=== PATIENT | female | born 1945 | race Caucasian/White ===

== ENCOUNTER 2018-09-19 20:51 | Inpatient (IN) ==
--- NOTE | 2018-09-19 21:47 | ED ---
HPI General Chief complaint: Weakness Stated complaint: weakness, walking to the side Time Seen by Provider: 09/19/18 21:30 Source: patient and family (Daughter) Mode of arrival: ambulatory Limitations: no limitations History of Present Illness HPI narrative: 72-year-old female came to the emergency room brought by her daughter for being lethargic and poorly responsive this evening. She checked her oxygen saturation and it was 60. The daughter says she is much more awake now. The patient tells me that yesterday she noticed that she was constantly leaning over to the right side. This morning when she woke up she was feeling extremely tired and both her legs were hurting mostly on the anterior aspect of her thighs. She has been sleepy the whole day. She has history of diabetes but she is not on any medications. Patient did not check her blood sugar since her machine is broken. Currently she is awake and answering all the questions. She says she just feels very tired. Patient is on morphine twice a day for chronic pain and Xanax as needed. Patient last took these medications last night. She says she has been on these medications for more than 30 years and has never had problems. She did not drink any alcohol. Vital signs were relatively stable upon arrival. The daughter cannot tell me the exact time of onset. She saw the patient last time lethargic but talking in the morning. Onset (ago): hour(s) Radiation: non-radiation and extremity (Bilateral lower extremities) Severity: moderate Related Data Home Medications Medication Instructions Recorded Confirmed conjugated estrogens [Premarin] 1.25 mg PO DAILY 09/19/18 09/19/18 enalapril maleate 10 mg PO DAILY 09/19/18 09/19/18 Previous Rx's Medication Instructions Recorded alprazolam [Xanax] 0.5 mg PO TID PRN #0 tab 09/21/18 apixaban [Eliquis] 5 mg PO BID #60 tab 09/21/18 atorvastatin 20 mg PO HS #90 tab 09/21/18 Allergies Allergy/AdvReac Type Severity Reaction Status Date / Time codeine Allergy Severe FACE Unverified 07/08/17 15:51 THROAT,TONGUE SWELL cyclobenzaprine Allergy Severe Unverified 07/08/17 15:51 diclofenac Allergy Severe Unverified 07/08/17 15:51 doxycycline Allergy Severe Unverified 07/08/17 15:51 egg Allergy Severe Unverified 07/08/17 15:51 etodolac Allergy Severe Unverified 07/08/17 15:51 flurbiprofen Allergy Severe Unverified 07/08/17 15:51 glipizide Allergy Severe Unverified 07/08/17 15:51 glyburide Allergy Severe Unverified 07/08/17 15:51 hydrocodone Allergy Severe Unverified 07/08/17 15:51 ibuprofen Allergy Severe Unverified 07/08/17 15:51 indomethacin Allergy Severe Unverified 07/08/17 15:51 Iodinated Contrast- Oral and Allergy Severe Unverified 07/08/17 15:51 IV Dye iodine Allergy Severe Unverified 07/08/17 15:51 ketoprofen Allergy Severe Unverified 07/08/17 15:51 ketorolac Allergy Severe Unverified 07/08/17 15:51 lactose Allergy Severe Unverified 07/08/17 15:51 lidocaine Allergy Severe Unverified 07/08/17 15:51 methocarbamol Allergy Severe Unverified 07/08/17 15:51 metoprolol Allergy Severe Unverified 07/08/17 15:51 minocycline Allergy Severe Unverified 07/08/17 15:51 naproxen Allergy Severe Unverified 07/08/17 15:51 oxaprozin Allergy Severe Unverified 07/08/17 15:51 penicillin G Allergy Severe Unverified 07/08/17 15:51 potassium iodide Allergy Severe Unverified 07/08/17 15:51 povidone-iodine Allergy Severe Unverified 07/08/17 15:51 procaine Allergy Severe Unverified 07/08/17 15:51 propoxyphene Allergy Severe Unverified 07/08/17 15:51 rosiglitazone Allergy Severe Unverified 07/08/17 15:51 sodium iodide Allergy Severe Unverified 07/08/17 15:51 sodium iodide Allergy Severe Unverified 07/08/17 15:51 Sulfa (Sulfonamide Allergy Severe Unverified 07/08/17 15:51 Antibiotics) tetanus toxoid, adsorbed Allergy Severe Unverified 07/08/17 15:51 tigecycline Allergy Severe Unverified 07/08/17 15:51 "-STEPHANIE" Allergy Severe CARDIAC Uncoded 08/21/16 20:38 ARREST Review of Systems ROS: all other systems reviewed are negative Constitutional Reports lethargy Musculoskeletal Reports myalgias [facility] Medical History Medical History Diabetes (Acute) Surgical History Surgical History H/O section (Acute) Social History Social History Substance History: No History of Abuse Second Hand Smoke Exposure: No Smoking Status: Former smoker Tobacco Type: Cigarettes How Often Do You Have a Drink Containing Alcohol: Never Recent Travel in [facility] within the Last 8 Weeks: No Recent Out of Country Travel within the Last 8 Weeks: No Exam Narrative Exam Narrative: GENERAL: Awake, disheveled, moderate distress, emaciated SKIN: Focused skin assessment warm/dry. Disheveled HEAD: Atraumatic. Normocephalic. EYES: Pupils equal and round. No scleral icterus. No injection or drainage. ENT: No nasal bleeding or discharge. Mucous membranes pink and moist. NECK: Trachea midline. No JVD. CARDIOVASCULAR: Regular rate and rhythm. No murmur appreciated. RESPIRATORY: No accessory muscle use. Clear to auscultation. Breath sounds equal bilaterally. GASTROINTESTINAL: Abdomen soft, non-tender, nondistended. Hepatic and splenic margins not palpable. MUSCULOSKELETAL: No obvious deformities. No clubbing. No cyanosis. No edema. NEUROLOGICAL: Awake and alert. No obvious cranial nerve deficits. Left lower extremity weakness. Normal speech. Oriented x3 PSYCHIATRIC: Appropriate mood and affect; insight and judgment normal. Course Initial Documented Vital Signs Temperature 98.2 F 09/19/18 20:55 Pulse Rate 68 09/19/18 20:55 Respiratory Rate 20 09/19/18 20:55 Blood Pressure 177/99 H 09/19/18 20:55 Pulse Oximetry 98 09/19/18 20:55 Last Documented Vital Signs Temperature 97.6 F 09/21/18 12:00 Pulse Rate 55 L 09/21/18 12:00 Respiratory Rate 18 09/21/18 12:00 Blood Pressure 146/69 H 09/21/18 12:00 Pulse Oximetry 95 09/21/18 12:00 Medical Decision Making MDM Narrative Medical decision making narrative: 9:55 PM awaiting for the blood test and the CAT scan to be done and resulted. Bedside blood glucose level was 140. 11 PM blood test results are back and CPK is elevated. TSH is significantly low. UA suggestive of a UTI. Based on this I have ordered her a second liter of IV fluid bolus and p.o. Macrobid. CT of the head most notably shows a subacute infarct. Patient has been complaining of headache and I have ordered Tylenol. Patient will require admission. Awaiting for the hospitalist callback. Medical Screen Exam Complete: Yes Emergency Medical Condition: Yes Lab Data Result diagrams: 09/19/18 21:55 09/19/18 21:55 Lab Results 09/19/18 09/19/18 09/19/18 Range/Units 21:55 21:55 21:55 WBC 11.5 H (4.0-11.0) th/mm3 RBC 4.77 (4.00-5.30) mil/mm3 Hgb 12.8 (11.6-15.3) gm/dL Hct 40.1 (35.0-46.0) % MCV 84.1 (80.0-100.0) fL MCH 26.8 L (27.0-34.0) pg MCHC 31.9 L (32.0-36.0) % RDW 16.3 (11.6-17.2) % Plt Count 405 (150-450) th/mm3 MPV 8.2 (7.0-11.0) fL Neut % (Auto) 79.2 H (16.0-70.0) % Lymph % (Auto) 11.9 (9.0-44.0) % Eagle % (Auto) 5.0 (0.0-8.0) % Eos % (Auto) 3.2 (0.0-4.0) % Baso % (Auto) 0.7 (0.0-2.0) % Neut # (Auto) 9.1 H (1.8-7.7) th/mm3 Lymph # (Auto) 1.4 (1.0-4.8) th/mm3 Eagle # (Auto) 0.6 (0.0-0.9) th/mm3 Eos # (Auto) 0.4 (0.0-0.4) th/mm3 Baso # (Auto) 0.1 (0.0-0.2) th/mm3 WBC Differential . Differential Comment Auto diff final Sodium 138 (136-145) meq/L Potassium 3.9 (3.5-5.1) meq/L Chloride 103 (98-107) meq/L Carbon Dioxide 27.2 (21.0-32.0) meq/L Anion Gap 8 (5-15) meq/L BUN 20 H (7-18) mg/dL Creatinine 0.91 (0.50-1.00) mg/dL Estimated GFR 61 L (>89) mL/min POC Glucose (68-110) mg/dl Random Glucose 178 H (74-106) mg/dL Hemoglobin A1c (4.3-6.0) % Calcium 8.6 (8.5-10.1) mg/dL Magnesium 1.8 (1.5-2.5) mg/dL Total Bilirubin 0.4 (0.2-1.0) mg/dL AST 58 H (15-37) U/L ALT 36 (10-53) U/L Alkaline Phosphatase 85 (45-117) U/L Ammonia 14 (11-32) mcmol/L Total Creatine Kinase (26-192) U/L CK-MB (CK-2) (0.5-3.6) ng/mL CK-MB (CK-2) % (0.0-4.0) % Troponin I Less than 0.02 L (0.02-0.05) ng/mL Total Protein 7.4 (6.4-8.2) g/dL Albumin 3.3 L (3.4-5.0) g/dL Triglycerides (42-150) mg/dL Cholesterol (120-200) mg/dL LDL Cholesterol, Calc (0-99) mg/dL HDL Cholesterol (40.0-60.0) mg/dL Cholesterol/HDL Ratio Ratio Vitamin B12 (193-986) pg/mL TSH 0.279 L (0.358-3.740) uIU/mL Urine Color (Yellw/Straw) Urine Clarity (Clear) Urine pH (5.0-8.5) Ur Specific [place] (1.002-1.035) Urine Protein (Neg-Trace) mg/dL Urine Glucose (UA) (Negative) mg/dL Urine Ketones (Negative) mg/dL Urine Occult Blood (Negative) Urine Nitrate (Negative) Urine Bilirubin (Negative) Urine Urobilinogen (Less than 2) mg/dL Ur Leukocyte Esterase (Negative) Urine RBC (0-3) /hpf Urine WBC (0-5) /hpf Ur Squamous Epith Cells (0-5) /hpf Urine Bacteria (None) /hpf Micro UA Comment Ur Microscopic Review Urine Culture Comments Urine Opiates Screen (Neg) Ur Barbiturates Screen (Neg) Ur Amphetamines Screen (Neg) U Benzodiazepines Scrn (Neg) Urine Cocaine Screen (Neg) U Cannabinoids Screen (Neg) Serum Alcohol Less than 3 (0-5) mg/dL 09/19/18 09/19/18 09/19/18 Range/Units 21:55 22:37 22:37 WBC (4.0-11.0) th/mm3 RBC (4.00-5.30) mil/mm3 Hgb (11.6-15.3) gm/dL Hct (35.0-46.0) % MCV (80.0-100.0) fL MCH (27.0-34.0) pg MCHC (32.0-36.0) % RDW (11.6-17.2) % Plt Count (150-450) th/mm3 MPV (7.0-11.0) fL Neut % (Auto) (16.0-70.0) % Lymph % (Auto) (9.0-44.0) % Eagle % (Auto) (0.0-8.0) % Eos % (Auto) (0.0-4.0) % Baso % (Auto) (0.0-2.0) % Neut # (Auto) (1.8-7.7) th/mm3 Lymph # (Auto) (1.0-4.8) th/mm3 Eagle # (Auto) (0.0-0.9) th/mm3 Eos # (Auto) (0.0-0.4) th/mm3 Baso # (Auto) (0.0-0.2) th/mm3 WBC Differential Differential Comment Sodium (136-145) meq/L Potassium (3.5-5.1) meq/L Chloride (98-107) meq/L Carbon Dioxide (21.0-32.0) meq/L Anion Gap (5-15) meq/L BUN (7-18) mg/dL Creatinine (0.50-1.00) mg/dL Estimated GFR (>89) mL/min POC Glucose (68-110) mg/dl Random Glucose (74-106) mg/dL Hemoglobin A1c (4.3-6.0) % Calcium (8.5-10.1) mg/dL Magnesium (1.5-2.5) mg/dL Total Bilirubin (0.2-1.0) mg/dL AST (15-37) U/L ALT (10-53) U/L Alkaline Phosphatase (45-117) U/L Ammonia (11-32) mcmol/L Total Creatine Kinase 1241 H (26-192) U/L CK-MB (CK-2) 30.1 H (0.5-3.6) ng/mL CK-MB (CK-2) % 2.4 (0.0-4.0) % Troponin I (0.02-0.05) ng/mL Total Protein (6.4-8.2) g/dL Albumin (3.4-5.0) g/dL Triglycerides (42-150) mg/dL Cholesterol (120-200) mg/dL LDL Cholesterol, Calc (0-99) mg/dL HDL Cholesterol (40.0-60.0) mg/dL Cholesterol/HDL Ratio Ratio Vitamin B12 (193-986) pg/mL TSH (0.358-3.740) uIU/mL Urine Color Yellow (Yellw/Straw) Urine Clarity Hazy H (Clear) Urine pH 6.0 (5.0-8.5) Ur Specific [place] 1.003 (1.002-1.035) Urine Protein Negative (Neg-Trace) mg/dL Urine Glucose (UA) Negative (Negative) mg/dL Urine Ketones Negative (Negative) mg/dL Urine Occult Blood Negative (Negative) Urine Nitrate Negative (Negative) Urine Bilirubin Negative (Negative) Urine Urobilinogen Less than 2 (Less than 2) mg/dL Ur Leukocyte Esterase Small H (Negative) Urine RBC 1 (0-3) /hpf Urine WBC 2 (0-5) /hpf Ur Squamous Epith Cells 7 (0-5) /hpf Urine Bacteria Many H (None) /hpf Micro UA Comment Culture indicated Ur Microscopic Review Not Reportable Urine Culture Comments Culture indicated Urine Opiates Screen Pos H (Neg) Ur Barbiturates Screen Neg (Neg) Ur Amphetamines Screen Neg (Neg) U Benzodiazepines Scrn Pos H (Neg) Urine Cocaine Screen Neg (Neg) U Cannabinoids Screen Neg (Neg) Serum Alcohol (0-5) mg/dL 09/20/18 09/20/18 09/20/18 Range/Units 06:53 06:53 06:53 WBC (4.0-11.0) th/mm3 RBC (4.00-5.30) mil/mm3 Hgb (11.6-15.3) gm/dL Hct (35.0-46.0) % MCV (80.0-100.0) fL MCH (27.0-34.0) pg MCHC (32.0-36.0) % RDW (11.6-17.2) % Plt Count (150-450) th/mm3 MPV (7.0-11.0) fL Neut % (Auto) (16.0-70.0) % Lymph % (Auto) (9.0-44.0) % Eagle % (Auto) (0.0-8.0) % Eos % (Auto) (0.0-4.0) % Baso % (Auto) (0.0-2.0) % Neut # (Auto) (1.8-7.7) th/mm3 Lymph # (Auto) (1.0-4.8) th/mm3 Eagle # (Auto) (0.0-0.9) th/mm3 Eos # (Auto) (0.0-0.4) th/mm3 Baso # (Auto) (0.0-0.2) th/mm3 WBC Differential Differential Comment Sodium (136-145) meq/L Potassium (3.5-5.1) meq/L Chloride (98-107) meq/L Carbon Dioxide (21.0-32.0) meq/L Anion Gap (5-15) meq/L BUN (7-18) mg/dL Creatinine (0.50-1.00) mg/dL Estimated GFR (>89) mL/min POC Glucose (68-110) mg/dl Random Glucose (74-106) mg/dL Hemoglobin A1c 6.3 H (4.3-6.0) % Calcium (8.5-10.1) mg/dL Magnesium (1.5-2.5) mg/dL Total Bilirubin (0.2-1.0) mg/dL AST (15-37) U/L ALT (10-53) U/L Alkaline Phosphatase (45-117) U/L Ammonia (11-32) mcmol/L Total Creatine Kinase (26-192) U/L CK-MB (CK-2) (0.5-3.6) ng/mL CK-MB (CK-2) % (0.0-4.0) % Troponin I (0.02-0.05) ng/mL Total Protein (6.4-8.2) g/dL Albumin (3.4-5.0) g/dL Triglycerides 68 (42-150) mg/dL Cholesterol 142 (120-200) mg/dL LDL Cholesterol, Calc 45 (0-99) mg/dL HDL Cholesterol 83.8 H (40.0-60.0) mg/dL Cholesterol/HDL Ratio 1.69 Ratio Vitamin B12 1529 H (193-986) pg/mL TSH (0.358-3.740) uIU/mL Urine Color (Yellw/Straw) Urine Clarity (Clear) Urine pH (5.0-8.5) Ur Specific [place] (1.002-1.035) Urine Protein (Neg-Trace) mg/dL Urine Glucose (UA) (Negative) mg/dL Urine Ketones (Negative) mg/dL Urine Occult Blood (Negative) Urine Nitrate (Negative) Urine Bilirubin (Negative) Urine Urobilinogen (Less than 2) mg/dL Ur Leukocyte Esterase (Negative) Urine RBC (0-3) /hpf Urine WBC (0-5) /hpf Ur Squamous Epith Cells (0-5) /hpf Urine Bacteria (None) /hpf Micro UA Comment Ur Microscopic Review Urine Culture Comments Urine Opiates Screen (Neg) Ur Barbiturates Screen (Neg) Ur Amphetamines Screen (Neg) U Benzodiazepines Scrn (Neg) Urine Cocaine Screen (Neg) U Cannabinoids Screen (Neg) Serum Alcohol (0-5) mg/dL 09/20/18 09/20/18 09/20/18 Range/Units 09:24 12:34 13:12 WBC (4.0-11.0) th/mm3 RBC (4.00-5.30) mil/mm3 Hgb (11.6-15.3) gm/dL Hct (35.0-46.0) % MCV (80.0-100.0) fL MCH (27.0-34.0) pg MCHC (32.0-36.0) % RDW (11.6-17.2) % Plt Count (150-450) th/mm3 MPV (7.0-11.0) fL Neut % (Auto) (16.0-70.0) % Lymph % (Auto) (9.0-44.0) % Eagle % (Auto) (0.0-8.0) % Eos % (Auto) (0.0-4.0) % Baso % (Auto) (0.0-2.0) % Neut # (Auto) (1.8-7.7) th/mm3 Lymph # (Auto) (1.0-4.8) th/mm3 Eagle # (Auto) (0.0-0.9) th/mm3 Eos # (Auto) (0.0-0.4) th/mm3 Baso # (Auto) (0.0-0.2) th/mm3 WBC Differential Differential Comment Sodium (136-145) meq/L Potassium (3.5-5.1) meq/L Chloride (98-107) meq/L Carbon Dioxide (21.0-32.0) meq/L Anion Gap (5-15) meq/L BUN (7-18) mg/dL Creatinine (0.50-1.00) mg/dL Estimated GFR (>89) mL/min POC Glucose 85 60 L 69 (68-110) mg/dl Random Glucose (74-106) mg/dL Hemoglobin A1c (4.3-6.0) % Calcium (8.5-10.1) mg/dL Magnesium (1.5-2.5) mg/dL Total Bilirubin (0.2-1.0) mg/dL AST (15-37) U/L ALT (10-53) U/L Alkaline Phosphatase (45-117) U/L Ammonia (11-32) mcmol/L Total Creatine Kinase (26-192) U/L CK-MB (CK-2) (0.5-3.6) ng/mL CK-MB (CK-2) % (0.0-4.0) % Troponin I (0.02-0.05) ng/mL Total Protein (6.4-8.2) g/dL Albumin (3.4-5.0) g/dL Triglycerides (42-150) mg/dL Cholesterol (120-200) mg/dL LDL Cholesterol, Calc (0-99) mg/dL HDL Cholesterol (40.0-60.0) mg/dL Cholesterol/HDL Ratio Ratio Vitamin B12 (193-986) pg/mL TSH (0.358-3.740) uIU/mL Urine Color (Yellw/Straw) Urine Clarity (Clear) Urine pH (5.0-8.5) Ur Specific [place] (1.002-1.035) Urine Protein (Neg-Trace) mg/dL Urine Glucose (UA) (Negative) mg/dL Urine Ketones (Negative) mg/dL Urine Occult Blood (Negative) Urine Nitrate (Negative) Urine Bilirubin (Negative) Urine Urobilinogen (Less than 2) mg/dL Ur Leukocyte Esterase (Negative) Urine RBC (0-3) /hpf Urine WBC (0-5) /hpf Ur Squamous Epith Cells (0-5) /hpf Urine Bacteria (None) /hpf Micro UA Comment Ur Microscopic Review Urine Culture Comments Urine Opiates Screen (Neg) Ur Barbiturates Screen (Neg) Ur Amphetamines Screen (Neg) U Benzodiazepines Scrn (Neg) Urine Cocaine Screen (Neg) U Cannabinoids Screen (Neg) Serum Alcohol (0-5) mg/dL 09/20/18 09/20/18 09/21/18 Range/Units 17:08 21:07 13:20 WBC (4.0-11.0) th/mm3 RBC (4.00-5.30) mil/mm3 Hgb (11.6-15.3) gm/dL Hct (35.0-46.0) % MCV (80.0-100.0) fL MCH (27.0-34.0) pg MCHC (32.0-36.0) % RDW (11.6-17.2) % Plt Count (150-450) th/mm3 MPV (7.0-11.0) fL Neut % (Auto) (16.0-70.0) % Lymph % (Auto) (9.0-44.0) % Eagle % (Auto) (0.0-8.0) % Eos % (Auto) (0.0-4.0) % Baso % (Auto) (0.0-2.0) % Neut # (Auto) (1.8-7.7) th/mm3 Lymph # (Auto) (1.0-4.8) th/mm3 Eagle # (Auto) (0.0-0.9) th/mm3 Eos # (Auto) (0.0-0.4) th/mm3 Baso # (Auto) (0.0-0.2) th/mm3 WBC Differential Differential Comment Sodium (136-145) meq/L Potassium (3.5-5.1) meq/L Chloride (98-107) meq/L Carbon Dioxide (21.0-32.0) meq/L Anion Gap (5-15) meq/L BUN (7-18) mg/dL Creatinine (0.50-1.00) mg/dL Estimated GFR (>89) mL/min POC Glucose 89 103 139 H (68-110) mg/dl Random Glucose (74-106) mg/dL Hemoglobin A1c (4.3-6.0) % Calcium (8.5-10.1) mg/dL Magnesium (1.5-2.5) mg/dL Total Bilirubin (0.2-1.0) mg/dL AST (15-37) U/L ALT (10-53) U/L Alkaline Phosphatase (45-117) U/L Ammonia (11-32) mcmol/L Total Creatine Kinase (26-192) U/L CK-MB (CK-2) (0.5-3.6) ng/mL CK-MB (CK-2) % (0.0-4.0) % Troponin I (0.02-0.05) ng/mL Total Protein (6.4-8.2) g/dL Albumin (3.4-5.0) g/dL Triglycerides (42-150) mg/dL Cholesterol (120-200) mg/dL LDL Cholesterol, Calc (0-99) mg/dL HDL Cholesterol (40.0-60.0) mg/dL Cholesterol/HDL Ratio Ratio Vitamin B12 (193-986) pg/mL TSH (0.358-3.740) uIU/mL Urine Color (Yellw/Straw) Urine Clarity (Clear) Urine pH (5.0-8.5) Ur Specific [place] (1.002-1.035) Urine Protein (Neg-Trace) mg/dL Urine Glucose (UA) (Negative) mg/dL Urine Ketones (Negative) mg/dL Urine Occult Blood (Negative) Urine Nitrate (Negative) Urine Bilirubin (Negative) Urine Urobilinogen (Less than 2) mg/dL Ur Leukocyte Esterase (Negative) Urine RBC (0-3) /hpf Urine WBC (0-5) /hpf Ur Squamous Epith Cells (0-5) /hpf Urine Bacteria (None) /hpf Micro UA Comment Ur Microscopic Review Urine Culture Comments Urine Opiates Screen (Neg) Ur Barbiturates Screen (Neg) Ur Amphetamines Screen (Neg) U Benzodiazepines Scrn (Neg) Urine Cocaine Screen (Neg) U Cannabinoids Screen (Neg) Serum Alcohol (0-5) mg/dL Imaging Data Radiologist's impression: Carotid Doppler Study 09/19/18 00:00 CONCLUSION: 1. Right Internal Carotid Artery: Findings indicate <50% stenosis. 2. Left Internal Carotid Artery: Findings indicate <50% stenosis. 3. No flow identified in the left vertebral, similar to prior carotid ultrasound in 2016. Chest X-Ray 09/19/18 21:43 CONCLUSION: Negative examination. Head CT 09/19/18 21:43 CONCLUSION: 1. Decreased attenuation in the right parieto-occipital region most characteristic of subacute or remote infarct. This is a new finding since 2016. 2. Chronic white matter ischemic changes. . 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 The right vertebral is unremarkable. CONCLUSION: 1. 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 Percent stenosis is calculated using the diameter of the stenotic region over the diameter of the normal distal internal carotid artery Head MRI 09/20/18 16:56 CONCLUSION: 1. 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 No recent infarct, mass effect or hemorrhage. Head MRA 09/20/18 16:56 CONCLUSION: 1. 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 2. No acute or suspicious algaaciq of [place] vascular abnormalities. ECG Data Attestation: I personally reviewed and interpreted this ECG as follows: Interpretation: Twelve-lead EKG was reviewed by me. Normal sinus rhythm, left axis deviation, bradycardia, first-degree AV block, bradycardia. Heart rate of 46 bpm. Discharge Plan Discharge Disposition Patient Disposition: 30 Still Patient Discharge Condition Condition: Good Discharge Order Discharge Orders: Discharge Order (Routine); Ordered 09/21/18 Ordered By: Miguel Webb Discharge Details Anticipated Discharge Date: 09/21/18 Physicians Team ED Provider: Obinna Franco Primary Care Provider: Primary Care Pawel,Iza Attending Provider: Miguel Webb Other Providers: [facility],Insurance ; Angel Luis Bobby ; Michael Kaiser ; Nurse Oncall,Agency Status ED Status: Left Department Discharge Information Discharge Date/Time: 09/20/18 00:20
[2018-09-19 22:10] LABS: Baso # (Auto) 0.1 th/mm3 (0.0-0.2); Baso % (Auto) 0.7 % (0.0-2.0); Eos # (Auto) 0.4 th/mm3 (0.0-0.4); Eos % (Auto) 3.2 % (0.0-4.0); Hematocrit 40.1 % (35.0-46.0); Hemoglobin 12.8 gm/dL (11.6-15.3); Lymph # (Auto) 1.4 th/mm3 (1.0-4.8); Lymph % (Auto) 11.9 % (9.0-44.0); Mean Corpuscular HGB Conc 31.9 % (32.0-36.0); Mean Corpuscular Hemoglobin 26.8 pg (27.0-34.0); Mean Corpuscular Volume 84.1 fL (80.0-100.0); Mean Platelet Volume 8.2 fL (7.0-11.0); Mono # (Auto) 0.6 th/mm3 (0.0-0.9); Neut # (Auto) 9.1 th/mm3 (1.8-7.7); Neut % (Auto) 79.2 % (16.0-70.0); Platelet Count 405 th/mm3 (150-450); Red Blood Count 4.77 mil/mm3 (4.00-5.30); Red Cell Distribution Width 16.3 % (11.6-17.2); White Blood Count 11.5 th/mm3 (4.0-11.0)
--- NOTE | 2018-09-19 22:15 | XR ---
EXAM DATE: 09/19/2018 10:09 PM EDT AGE/SEX: 72 years / Female INDICATIONS: Weakness and not feeling right for two days. CLINICAL DATA: This is the patient's initial encounter. Patient reports that signs and symptoms have been present for 2 days and indicates a pain score of 0/10. MEDICAL/SURGICAL HISTORY: . Hypertension. Diabetic, Atrial fibrillation. section. COMPARISON: [facility] [place], [place]ST PA & LAT, 09/05/2016. . FINDINGS: A single AP view of the chest demonstrates the lungs to be symmetrically aerated without evidence of mass, infiltrate or effusion. The cardiomediastinal contours are unremarkable. Osseous structures a re intact. CONCLUSION: Negative examination. Electronically signed by: Nader Haywood MD 09/19/2018 10:13 PM EDT
[2018-09-19] MEDS: Sod Chloride 0.9% Inj 1,000 ML IV.CONT SCH (22:28)
[2018-09-19 22:35] LABS: Albumin 3.3 g/dL (3.4-5.0); Anion Gap 8 meq/L (5-15); Aspartate Aminotransferase 58 U/L (15-37); Blood Urea Nitrogen 20 mg/dL (7-18); Calcium 8.6 mg/dL (8.5-10.1); Carbon Dioxide 27.2 meq/L (21.0-32.0); Chloride 103 meq/L (98-107); Glomerular Filtration Rate 61 mL/min (>89); Glucose,Random 178 mg/dL (74-106); Magnesium 1.8 mg/dL (1.5-2.5); Potassium 3.9 meq/L (3.5-5.1); Sodium 138 meq/L (136-145)
[2018-09-19 22:37] LABS: Alanine Aminotransferase 36 U/L (10-53)
[2018-09-19 22:46] LABS: Alkaline Phosphatase 85 U/L (45-117); Thyroid Stimulating Hormone 0.279 uIU/mL (0.358-3.740); Total Protein 7.4 g/dL (6.4-8.2)
--- NOTE | 2018-09-19 22:46 | CT ---
EXAM DATE: 09/19/2018 10:36 PM EDT AGE/SEX: 72 years / Female INDICATIONS: Migraine. CLINICAL DATA: This is the patient's initial encounter. Patient reports that signs and symptoms have been present for 1 day and indicates a pain score of 8/10. MEDICAL/SURGICAL HISTORY: Diabetes. section. RADIATION DOSE: 35.7 CTDI (mGy) COMPARISON: [facility], CT BRAIN W/O CONTRAST, 09/03/2016. . TECHNIQUE: CT of the head without contrast. Using automated exposure control and adjustment of the mA and/or kV according to patient size, radiation dose was kept as low as reasonably achievable to ob tain optimal diagnostic quality images. DICOM format image data is available electronically for revi ew and comparison. FINDINGS: Cerebrum: Compared with the previous exam in 2016. There is a new area of decreased attenuation in t he right parieto-occipital region most characteristic of a subacute or old infarct. Chronic white mat ter ischemic changes also noted. No new hemorrhage or mass effect or shift. Posterior Fossa: The cerebellum and brainstem are intact. The 4th ventricle is midline. The cerebe llopontine angle is unremarkable. Extracranial: The visualized portion of the orbits is intact. Skull: The calvaria is intact. No evidence of skull fracture. CONCLUSION: 1. Decreased attenuation in the right parieto-occipital region most characteristic of subacute or re mote infarct. This is a new finding since 2016. 2. Chronic white matter ischemic changes. . Electronically signed by: Nader Haywood MD 09/19/2018 10:44 PM EDT
[2018-09-19 22:56] LABS: Bacteria,Urine Many /hpf; Bilirubin,Urine Negative (Negative); Clarity,Urine Hazy (Clear); Color,Urine Yellow (Yellw/Straw); Glucose,Urine (UA) Negative (Negative); Leukocyte Esterase,Urine Small (Negative); Nitrite,Urine Negative (Negative); Specific Gravity,Urine 1.003 (1.002-1.035); Squamous Epithelial Cell,Urine 7 /hpf (0-5)
[2018-09-19 22:57] LABS: Amphetamine Screen,Urine Neg (Neg); Barbiturate Screen,Urine Neg (Neg); Cannabinoid Screen,Urine Neg (Neg); Cocaine Screen,Urine Neg (Neg)
[2018-09-19] MEDS ORDERED: Nitrofurantoin Monohydrate-Macrocrystal 100 MG Capsule PO ONE (22:58)
[2018-09-19] MEDS ORDERED: Acetaminophen 325 MG Tablet PO ONE (22:58)
[2018-09-19 22:59] LABS: Opiate Screen,Urine Pos (Neg)
[2018-09-19] MEDS ORDERED: Sod Chloride 0.9% Inj 1,000 ML IV.SIG SCH (23:00)
[2018-09-19 23:06] LABS: CKMB Percent 2.4 % (0.0-4.0); Creatine Kinase MB 30.1 ng/mL (0.5-3.6)
[2018-09-19] MEDS ORDERED: Dextrose 50% in Water 50 ML Vial IV.PUSH PRN (23:15)
--- NOTE | 2018-09-19 23:47 | P.HPIM ---
History of Present Illness Primary Care Physician: No Primary Care Physician History of Present Illness: 72-year-old female with a history of migraines, CAD, atrial fibrillation not on rate control or anticoagulation, hypothyroidism not on treatment, fibromyalgia, degenerative disc disease on morphine 60 mg extended release twice daily who presents with 1 day history of altered mental status and increased somnolence. Daughter saw the patient this morning after not having seen her for several days and noted that she was somnolent, falling to her right side, slurring speech, and had difficulty swallowing water on the way to the hospital. Patient has regained speech and says that she is felt strange over the past day. Denies any chest pain, shortness of breath. Denies any changes in medications. Daughter notes new prescription for Lortab over the past month. Search of the T4 shows that patient picked up morphine, 180 tablets of Adderall , as well as Xanax on 08/20. Patient does report diffuse pain all over and over the past day. Inpatient Certification: I certify that the inpatient services were ordered in accordance with Medicare regulations governing the order. This includes certification that hospital inpatient services are reasonable and necessary and in the case of services not specified as inpatient-only under 42 CFR 419.22(n), that they are appropriately provided as inpatient services in accordance to with the 2-midnight benchmark under 43 CFR 412.3(e) Estimated Total Length of Stay (Days): 2 Plans for Post Hospital Care: Not yet determined Review of Systems All other systems reviewed negative except as stated in HPI PMFSH - History History Provided By: Patient - Medical History Medical History: Medical History (Last Updated 09/19/18 @ 23:48 by Viraj Cain MD) Atrial fibrillation CAD (coronary artery disease) Degenerative disc disease Diabetes Fibromyalgia Hypothyroid - Surgical History Surgical History: Surgical History (Last Reviewed 09/19/18 @ 21:54 by Obinna Franco MD) H/O section - Family History Family History: Family History (Last Updated 09/19/18 @ 23:48 by Viraj Cain MD) Father Heart disease Father Stroke - Tobacco History Second Hand Smoke Exposure: No Tobacco Use In Past 30 Days: No Smoking Status: Never smoker Tobacco Type: Cigarettes - Alcohol History How Often Do You Have a Drink Containing Alcohol: Never - Substance Use History Substance History: No History of Abuse - Travel History Recent Travel in the [facility] Within the Last 8 Weeks: No Recent Travel Out of the Country Within the Last 8 Weeks: No - Immunization History Tetanus Immunization: Never Vaccinated Medications and Allergies Active Medications: Active Medications Aspirin (Aspirin Chew) 162 mg PO ONCE ONE Stop: 09/19/18 23:36 Dextrose (D50w Vial) 50 ml IV.PUSH UNSCH PRN PRN Reason: PER HYPOGLYCEMIA PROTOCOL Sodium Chloride (Ns Inj) 1,000 mls @ 125 mls/hr IV.CONT .Q8H ANKITA Last Admin: 09/19/18 22:28 Dose: 125 mls/hr Sodium Chloride (Ns Inj) 1,000 mls @ 0 mls/hr IV.SIG BOLUS ANKITA Insulin Aspart (Novolog Insulin Correctional Sugar Inj) 0 unit SQ ACHS ANKITA; Protocol Sodium Chloride (Ns Flush) 2 ml IV.FLUSH BID ANKITA Sodium Chloride (Ns Flush) 2 ml IV.FLUSH PRN PRN PRN Reason: FLUSH AFTER USING IV ACCESS Allergies Allergy/AdvReac Type Severity Reaction Status Date / Time codeine Allergy Severe FACE Unverified 07/08/17 15:51 THROAT,TONGUE SWELL cyclobenzaprine Allergy Severe Unverified 07/08/17 15:51 diclofenac Allergy Severe Unverified 07/08/17 15:51 doxycycline Allergy Severe Unverified 07/08/17 15:51 egg Allergy Severe Unverified 07/08/17 15:51 etodolac Allergy Severe Unverified 07/08/17 15:51 flurbiprofen Allergy Severe Unverified 07/08/17 15:51 glipizide Allergy Severe Unverified 07/08/17 15:51 glyburide Allergy Severe Unverified 07/08/17 15:51 hydrocodone Allergy Severe Unverified 07/08/17 15:51 ibuprofen Allergy Severe Unverified 07/08/17 15:51 indomethacin Allergy Severe Unverified 07/08/17 15:51 Iodinated Contrast- Oral and Allergy Severe Unverified 07/08/17 15:51 IV Dye iodine Allergy Severe Unverified 07/08/17 15:51 ketoprofen Allergy Severe Unverified 07/08/17 15:51 ketorolac Allergy Severe Unverified 07/08/17 15:51 lactose Allergy Severe Unverified 07/08/17 15:51 lidocaine Allergy Severe Unverified 07/08/17 15:51 methocarbamol Allergy Severe Unverified 07/08/17 15:51 metoprolol Allergy Severe Unverified 07/08/17 15:51 minocycline Allergy Severe Unverified 07/08/17 15:51 naproxen Allergy Severe Unverified 07/08/17 15:51 oxaprozin Allergy Severe Unverified 07/08/17 15:51 penicillin G Allergy Severe Unverified 07/08/17 15:51 potassium iodide Allergy Severe Unverified 07/08/17 15:51 povidone-iodine Allergy Severe Unverified 07/08/17 15:51 procaine Allergy Severe Unverified 07/08/17 15:51 propoxyphene Allergy Severe Unverified 07/08/17 15:51 rosiglitazone Allergy Severe Unverified 07/08/17 15:51 sodium iodide Allergy Severe Unverified 07/08/17 15:51 sodium iodide Allergy Severe Unverified 07/08/17 15:51 Sulfa (Sulfonamide Allergy Severe Unverified 07/08/17 15:51 Antibiotics) tetanus toxoid, adsorbed Allergy Severe Unverified 07/08/17 15:51 tigecycline Allergy Severe Unverified 07/08/17 15:51 "-STEPHANIE" Allergy Severe CARDIAC Uncoded 08/21/16 20:38 ARREST Home Medications Medication Instructions Recorded Confirmed Type alprazolam [Xanax] 1 mg PO TID PRN 09/19/18 09/19/18 History conjugated estrogens [Premarin] 1.25 mg PO DAILY 09/19/18 09/19/18 History enalapril maleate 10 mg PO DAILY 09/19/18 09/19/18 History hydrocodone-acetaminophen [[place]] 7.5 - 325 mg PO BID 09/19/18 09/19/18 History morphine 60 mg PO Q12H 09/19/18 09/19/18 History naproxen 09/19/18 History Exam Vital signs: Vital Signs 09/19/18 20:55 09/19/18 22:14 09/19/18 22:15 Temperature 98.2 F Pulse Rate 68 49 L Respiratory Rate 20 15 Blood Pressure 177/99 H Pulse Oximetry 98 97 97 09/19/18 22:18 09/19/18 22:57 Temperature Pulse Rate 47 L Respiratory Rate 18 Blood Pressure 190/73 H 167/69 H Pulse Oximetry 96 Intake & Output 09/19/18 09/19/18 09/20/18 06:59 18:59 06:59 Weight 56.699 kg Narrative: GENERAL: Patient sitting up in bed. Appears comfortable. Demonstrates that she is generally uncomfortable. Alert and oriented x3. SKIN: Warm and dry. HEAD: Atraumatic. Normocephalic. EYES: Pupils equal and round. No scleral icterus. No injection or drainage. ENT: No nasal bleeding or discharge. Mucous membranes pink and moist. NECK: Trachea midline. No JVD. CARDIOVASCULAR: Regular rate and rhythm. RESPIRATORY: No accessory muscle use. Clear to auscultation. Breath sounds equal bilaterally. GASTROINTESTINAL: Abdomen soft, non-tender, nondistended. Hepatic and splenic margins not palpable. MUSCULOSKELETAL: Extremities without clubbing, cyanosis, or edema. No obvious deformities. NEUROLOGICAL: Awake and alert. No obvious cranial nerve deficits. Motor grossly within normal limits. Five out of 5 muscle strength in the arms and legs. Reflexes 2+ bilateral lower extremities and symmetric. Normal speech. PSYCHIATRIC: Appropriate mood and affect; insight and judgment normal. Results - Labs CBC & Chem 7: 09/19/18 21:55 09/19/18 21:55 Labs: Short CBC 09/19/18 Range/Units 21:55 WBC 11.5 H (4.0-11.0) th/mm3 Hgb 12.8 (11.6-15.3) gm/dL Hct 40.1 (35.0-46.0) % Plt Count 405 (150-450) th/mm3 [facility] 09/19/18 21:55 Sodium 138 Potassium 3.9 Chloride 103 Carbon Dioxide 27.2 BUN 20 H Creatinine 0.91 Calcium 8.6 Cardiac Enzymes 09/19/18 09/19/18 Range/Units 21:55 21:55 Total Creatine Kinase 1241 H (26-192) U/L CK-MB (CK-2) 30.1 H (0.5-3.6) ng/mL Troponin I Less than 0.02 L (0.02-0.05) ng/mL Liver Function 09/19/18 Range/Units 21:55 Total Bilirubin 0.4 (0.2-1.0) mg/dL AST 58 H (15-37) U/L ALT 36 (10-53) U/L Alkaline Phosphatase 85 (45-117) U/L Albumin 3.3 L (3.4-5.0) g/dL Urine 09/19/18 Range/Units 22:37 Urine Color Yellow (Yellw/Straw) Urine Clarity Hazy H (Clear) Urine pH 6.0 (5.0-8.5) Ur Specific [place] 1.003 (1.002-1.035) Urine Protein Negative (Neg-Trace) mg/dL Urine Glucose (UA) Negative (Negative) mg/dL - Imaging Impressions Chest X-Ray 09/19/18 21:43 CONCLUSION: Negative examination. Head CT 09/19/18 21:43 CONCLUSION: 1. Decreased attenuation in the right parieto-occipital region most characteristic of subacute or remote infarct. This is a new finding since 2016. 2. Chronic white matter ischemic changes. . Caprini VTE Risk Assessment Caprini VTE Risk Assessment: Moderate/High Risk (score >= 2) Caprini Risk Assessment Model: Point Value = 1 Point Value = 2 Point Value = 3 Point Value = 5 Age 41-60 Minor surgery BMI > 25 kg/m2 Swollen legs Varicose veins or History of unexplained or recurrent spontaneous Oral contraceptives or hormone replacement Sepsis (< 1 month) Serious lung disease, including pneumonia (< 1 month) Abnormal pulmonary function Acute myocardial infarction Congestive heart failure (< 1 month) History of inflammatory bowel disease Medical patient at bed rest Age 61-74 Arthroscopic surgery Major open surgery (> 45 min) Laparoscopic surgery (> 45 min) Malignancy Confined to bed (> 72 hours) Immobilizing plaster cast Central venous access Age >= 75 History of VTE Family history of VTE Factor V Leiden Prothrombin [id number] Lupus anticoagulant Anticardiolipin antibodies Elevated serum homocysteine Heparin-induced thrombocytopenia Other congenital or acquired thrombophilia Stroke (< 1 month) Elective arthroplasty Hip, pelvis, or leg fracture Acute spinal cord injury (< 1 month) Prophylaxis Regimen: Total Risk Factor Score Risk Level Prophylaxis Regimen 0-1 Low Early ambulation 2 Moderate Order ONE of the following: *Sequential Compression Device (SCD) *Heparin 5000 units SQ BID 3-4 Higher Order ONE of the following medications: *Heparin 5000 units SQ TID *Enoxaparin/Lovenox 40 mg SQ daily (WT < 150 kg, CrCl > 30 mL/min) *Enoxaparin/Lovenox 30 mg SQ daily (WT < 150 kg, CrCl > 10-29 mL/min) *Enoxaparin/Lovenox 30 mg SQ BID (WT < 150 kg, CrCl > 30 mL/min) AND/OR *Sequential Compression Device (SCD) 5 or more Highest Order ONE of the following medications: *Heparin 5000 units SQ TID (Preferred with Epidurals) *Enoxaparin/Lovenox 40 mg SQ daily (WT < 150 kg, CrCl > 30 mL/min) *Enoxaparin/Lovenox 30 mg SQ daily (WT < 150 kg, CrCl > 10-29 mL/min) *Enoxaparin/Lovenox 30 mg SQ BID (WT < 150 kg, CrCl > 30 mL/min) AND *Sequential Compression Device (SCD) Assessment and Plan - Plan //Suspected acute right-sided parieto-occipital stroke = As seen on CT --Daughter reports left-sided weakness, however patient does not. Reflexes symmetric as is strength. -Patient with history of atrial fibrillation, supposed to be on aspirin but has not been taking. -Check carotid ultrasound, echocardiogram -Neurology is consulted. Given patient's polypharmacy it is possible that the patient may have had a stroke over the past 2 years, but the current presentation is secondary to polypharmacy. 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 Will hold narcotics for now. Hold Adderall. = Patient may benefit from home health for medication management at discharge //Reported history of atrial fibrillation. -As per chart review. = Currently in sinus patient will be on telemetry. Apparently did not tolerate blood thinners in the past. Echo pending. //Reportedly with history of diabetes mellitus -Sugars acceptable. Insulin sliding scale Check A1c //Hypothyroidism. Chronic. Verify home medications. Discussed Condition With: Patient, nurse, ED physician.
--- NOTE | 2018-09-20 00:07 | US ---
EXAM DATE: 09/19/2018 11:50 PM EDT AGE/SEX: 72 years / Female INDICATIONS: TIA. Disoriented. CLINICAL DATA: This is the patient's subsequent encounter. Patient reports that signs and symptoms h ave been present for 1 day and indicates a pain score of 8/10. MEDICAL/SURGICAL HISTORY: Diabetes. Fibromyalgia. A-fib. CAD. section. COMPARISON: [facility], US CAROTID ARTERIES, 09/04/2016. . VELOCITY PARAMETERS: ICA/CCA Ratio: Right 1.3 , Left 1.2 ICA: Right 115 cm/sec, Left 86 cm/sec CCA: Right 89 cm/sec, Left 73 cm/sec ECA: Right 65 cm/sec, Left 37 cm/sec Vertebral: Right 79 cm/sec antegrade, Left not visualized. FINDINGS: Right Carotid: Mild arteriosclerotic calcified plaque is visualized.The waveforms are within normal limits. Left Carotid: Mild arteriosclerotic calcified plaque is visualized. The waveforms are within normal limits. Other: None. CONCLUSION: 1. Right Internal Carotid Artery: Findings indicate <50% stenosis. 2. Left Internal Carotid Artery: Findings indicate <50% stenosis. 3. No flow identified in the left vertebral, similar to prior carotid ultrasound in 2016. Electronically signed by: Cl Chery MD 09/20/2018 12:05 AM EDT
[2018-09-20] MEDS: Morphine Sulfate 30 MG SR Tablet PO SCH ×3 (01:10→21:00)
[2018-09-20] MEDS: Sod Chloride 0.9% Inj 1,000 ML IV.CONT SCH ×4 (05:45→22:47)
[2018-09-20] MEDS: Insulin NovoLOG Aspart Correctional Sugar Inj SQ SCH ×4 (08:00→21:53)
[2018-09-20 08:02] LABS: Chol/HDL Ratio 1.69 Ratio; HDL Cholesterol 83.8 mg/dL (40.0-60.0)
--- NOTE | 2018-09-20 09:51 | P.PN ---
Subjective Interval history: Follow-up for increased somnolence, altered mental status. Patient is currently doing well. She is alert, oriented x3. She denies any focal neurological deficits. No slurred speech. She does report a history of atrial fibrillation but she is not on any rate control medication or any anticoagulation. She follows up with Dr. Jackson (Cardiology). Physical Exam Vital signs: Vital Signs 09/19/18 20:55 09/19/18 22:14 09/19/18 22:15 Temperature 98.2 F Pulse Rate 68 49 L Respiratory Rate 20 15 Blood Pressure 177/99 H Pulse Oximetry 98 97 97 09/19/18 22:18 09/19/18 22:57 09/20/18 00:00 Temperature 97.4 F L Pulse Rate 47 L 57 L Respiratory Rate 18 16 Blood Pressure 190/73 H 167/69 H 147/65 H Pulse Oximetry 96 96 09/20/18 04:00 09/20/18 08:00 Temperature 97.7 F 97.8 F Pulse Rate 54 L 47 L Respiratory Rate 16 16 Blood Pressure 157/65 H 131/62 Pulse Oximetry 94 L 95 Intake & Output 09/19/18 09/20/18 09/20/18 18:59 06:59 18:59 Intake Total 1000 / 1000 Balance 1000 / 1000 Weight 56.699 kg Intake: IV 1000 / 1000 NS Inj 1,000 ML @ 125 mls/hr IV 1000 / 1000 .CONT .Q8H [facility] Rx#:[id number] Other: Date of Last Bowel Movement 09/19/18 Weight On Admission 56.699 kg Narrative: GENERAL: Alert, NAD. SKIN: Warm and dry. HEAD: Normocephalic. EYES: No scleral icterus. No injection or drainage. NECK: Supple, trachea midline. No JVD or lymphadenopathy. CARDIOVASCULAR: Regular rate and rhythm without murmurs, gallops, or rubs. RESPIRATORY: Breath sounds equal bilaterally. No accessory muscle use. GASTROINTESTINAL: Abdomen soft, non-tender, nondistended. MUSCULOSKELETAL: No cyanosis, or edema. Neurology: No focal neurological deficits. BACK: Nontender without obvious deformity. No CVA tenderness. Results - Labs CBC & Chem 7: 09/19/18 21:55 09/19/18 21:55 Laboratory Results - last 24 hr 09/19/18 09/19/18 09/19/18 21:55 21:55 21:55 WBC 11.5 H RBC 4.77 Hgb 12.8 Hct 40.1 MCV 84.1 MCH 26.8 L MCHC 31.9 L RDW 16.3 Plt Count 405 MPV 8.2 Neut % (Auto) 79.2 H Lymph % (Auto) 11.9 [place] % (Auto) 5.0 Eos % (Auto) 3.2 Baso % (Auto) 0.7 Neut # (Auto) 9.1 H Lymph # (Auto) 1.4 [place] # (Auto) 0.6 Eos # (Auto) 0.4 Baso # (Auto) 0.1 WBC Differential . Differential Comment Auto diff final Sodium 138 Potassium 3.9 Chloride 103 Carbon Dioxide 27.2 Anion Gap 8 BUN 20 H Creatinine 0.91 Estimated GFR 61 L POC Glucose Random Glucose 178 H Calcium 8.6 Magnesium 1.8 Total Bilirubin 0.4 AST 58 H ALT 36 Alkaline Phosphatase 85 Ammonia 14 Total Creatine Kinase CK-MB (CK-2) CK-MB (CK-2) % Troponin I Less than 0.02 L Total Protein 7.4 Albumin 3.3 L Triglycerides Cholesterol LDL Cholesterol, Calc HDL Cholesterol Cholesterol/HDL Ratio TSH 0.279 L Urine Color Urine Clarity Urine pH Ur Specific [place] Urine Protein Urine Glucose (UA) Urine Ketones Urine Occult Blood Urine Nitrate Urine Bilirubin Urine Urobilinogen Ur Leukocyte Esterase Urine RBC Urine WBC Ur Squamous Epith Cells Urine Bacteria Micro UA Comment Ur Microscopic Review Urine Culture Comments Urine Opiates Screen Ur Barbiturates Screen Ur Amphetamines Screen U Benzodiazepines Scrn Urine Cocaine Screen U Cannabinoids Screen Serum Alcohol Less than 3 09/19/18 09/19/18 09/19/18 21:55 22:37 22:37 WBC RBC Hgb Hct MCV MCH MCHC RDW Plt Count MPV Neut % (Auto) Lymph % (Auto) [place] % (Auto) Eos % (Auto) Baso % (Auto) Neut # (Auto) Lymph # (Auto) [place] # (Auto) Eos # (Auto) Baso # (Auto) WBC Differential Differential Comment Sodium Potassium Chloride Carbon Dioxide Anion Gap BUN Creatinine Estimated GFR POC Glucose Random Glucose Calcium Magnesium Total Bilirubin AST ALT Alkaline Phosphatase Ammonia Total Creatine Kinase 1241 H CK-MB (CK-2) 30.1 H CK-MB (CK-2) % 2.4 Troponin I Total Protein Albumin Triglycerides Cholesterol LDL Cholesterol, Calc HDL Cholesterol Cholesterol/HDL Ratio TSH Urine Color Yellow Urine Clarity Hazy H Urine pH 6.0 Ur Specific [place] 1.003 Urine Protein Negative Urine Glucose (UA) Negative Urine Ketones Negative Urine Occult Blood Negative Urine Nitrate Negative Urine Bilirubin Negative Urine Urobilinogen Less than 2 Ur Leukocyte Esterase Small H Urine RBC 1 Urine WBC 2 Ur Squamous Epith Cells 7 Urine Bacteria Many H Micro UA Comment Culture indicated Ur Microscopic Review Not Reportable Urine Culture Comments Culture indicated Urine Opiates Screen Pos H Ur Barbiturates Screen Neg Ur Amphetamines Screen Neg U Benzodiazepines Scrn Pos H Urine Cocaine Screen Neg U Cannabinoids Screen Neg Serum Alcohol 09/20/18 09/20/18 06:53 09:24 WBC RBC Hgb Hct MCV MCH MCHC RDW Plt Count MPV Neut % (Auto) Lymph % (Auto) [place] % (Auto) Eos % (Auto) Baso % (Auto) Neut # (Auto) Lymph # (Auto) [place] # (Auto) Eos # (Auto) Baso # (Auto) WBC Differential Differential Comment Sodium Potassium Chloride Carbon Dioxide Anion Gap BUN Creatinine Estimated GFR POC Glucose 85 Random Glucose Calcium Magnesium Total Bilirubin AST ALT Alkaline Phosphatase Ammonia Total Creatine Kinase CK-MB (CK-2) CK-MB (CK-2) % Troponin I Total Protein Albumin Triglycerides 68 Cholesterol 142 LDL Cholesterol, Calc 45 HDL Cholesterol 83.8 H Cholesterol/HDL Ratio 1.69 TSH Urine Color Urine Clarity Urine pH Ur Specific [place] Urine Protein Urine Glucose (UA) Urine Ketones Urine Occult Blood Urine Nitrate Urine Bilirubin Urine Urobilinogen Ur Leukocyte Esterase Urine RBC Urine WBC Ur Squamous Epith Cells Urine Bacteria Micro UA Comment Ur Microscopic Review Urine Culture Comments Urine Opiates Screen Ur Barbiturates Screen Ur Amphetamines Screen U Benzodiazepines Scrn Urine Cocaine Screen U Cannabinoids Screen Serum Alcohol - Imaging Impressions Carotid Doppler Study 09/19/18 00:00 CONCLUSION: 1. Right Internal Carotid Artery: Findings indicate <50% stenosis. 2. Left Internal Carotid Artery: Findings indicate <50% stenosis. 3. No flow identified in the left vertebral, similar to prior carotid ultrasound in 2016. Chest X-Ray 09/19/18 21:43 CONCLUSION: Negative examination. Head CT 09/19/18 21:43 CONCLUSION: 1. Decreased attenuation in the right parieto-occipital region most characteristic of subacute or remote infarct. This is a new finding since 2016. 2. Chronic white matter ischemic changes. . - Procedures None. Assessment and Plan - Plan 72-year-old female with a history of migraines, CAD, atrial fibrillation not on rate control or anticoagulation, hypothyroidism not on treatment, fibromyalgia, degenerative disc disease on morphine 60 mg extended release twice daily who presents with 1 day history of altered mental status and increased somnolence. Her symptoms were also possibly due to polypharmacy. Possible parieto-occipital region infarction -CT scan was not conclusive regarding the nature of this stroke - subacute vs. remote infarct. -Patient has a history of Afib. Should be on anti-coagulation. -Patient was on Warfarin briefly before but did not tolerate well because she is vegan. -Apixaban 5mg BID would be appropriate. -Neurology consult pending. -Carotid doppler negative. Echo pending. Hx of possible Afib -[id number] score likely 4 (age, sex, HTN, DM) -Follows up with Dr. Jackson -If okay with neurology, we will start Apixaban 5mg BID. Polypharmacy -Patient is on Morphine, Xanax, Adderal at home -Currently on Morphine Sulfate SR 30mg BID. Full code. Will start Apixaban tonight.
[2018-09-20 13:39] LABS: Hemoglobin A1c 6.3 % (4.3-6.0)
--- NOTE | 2018-09-20 14:04 | P.DCO ---
- Physical Therapy Order: Evaluate and treat, Improve ambulation, Strength and gait training - Home Health Nursing Order: Medical education, Signs/symptoms of disease process, Diabetic education , Medication education-adverse effect, Nursing assessment with vital signs - Case Management Consult No - Certification I have seen patient Noy Pulido on 09/20/18. My clinical findings support the need for the requested home health care services because: Limited mobility due to disease progression, Deconditioned with increased weakness, Limited ability to care for self, Need for psychosocial assistance, Impaired cognition/judgement, High risk of falls, Infection with risk of complications I certify that my clinical findings support that this patient is homebound because: Impaired cognitive ability/safety, Unsteady gait/balance, Unsafe to leave home unassisted, Need for psychosocial assistance, Non-ambulatory: confined to bed or chair, Unable to use public transportation
--- NOTE | 2018-09-20 14:24 | ECG ---
Date Performed: 09/19/2018 Time Performed: 22:10:02 PTAGE: 72 years EKG: SINUS BRADYCARDIA WITH FIRST DEGREE AV BLOCK PROBABLE ANTEROLATERAL MYOCARDIAL INFARCTION A BNORMAL ECG PREVIOUS TRACING : 09/05/2016 20.15 Since the previous tracing, no significant change noted DOCTOR: Lj Manrique Interpretating Date/Time 09/20/2018 14:23:22
[2018-09-20] MEDS ORDERED: Gadobutrol PF 10 MMOL/10 ML Vial (for RAD) IV.SIG ONE (17:53)
--- NOTE | 2018-09-20 18:40 | MR ---
EXAM DATE: 09/20/2018 6:31 PM EDT AGE/SEX: 72 years / Female INDICATIONS: Dizziness. CLINICAL DATA: This is the patient's initial encounter. Patient reports that signs and symptoms have been present for 1 day and indicates a pain score of 0/10. MEDICAL/SURGICAL HISTORY: Diabetes mellitus type II. section. COMPARISON: No prior exams available for comparison. TECHNIQUE: Multiplanar, multisequence examination of the brain was performed without and with 10CC ml Gadavist (gadobutrol) contrast as a single exam dose. FINDINGS: There is severe chronic white matter ischemic change. There is remote small infarct in the right luís eto-occipital region. No recent infarct identified on the diffusion weighted images. There is no mass effect or midline nydia ft. No hydrocephalus. No abnormal enhancing lesions are identified within the brain. No abnormal extr a-axial fluid collections. No sellar mass. CONCLUSION: 1. Severe chronic white matter ischemic changes predominantly in the periventricular region with rem ote small infarct in the right parieto-occipital region. No recent infarct, mass effect or hemorrhage . Electronically signed by: Nader Haywood MD 09/20/2018 6:38 PM EDT
--- NOTE | 2018-09-20 18:41 | MR ---
EXAM DATE: 09/20/2018 6:31 PM EDT AGE/SEX: 72 years / Female INDICATIONS: Dizziness. CLINICAL DATA: This is the patient's initial encounter. Patient reports that signs and symptoms have been present for 1 day and indicates a pain score of 0/10. MEDICAL/SURGICAL HISTORY: Diabetes mellitus type II. section. COMPARISON: [facility] – [place], MR HEAD W & W/O CONTRAST, 09/20/2018. . TECHNIQUE: 3D [id number] MRA was performed. Source images, multiplanar STS MIP, and 3D volum e MIP reconstructions were reviewed. 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 A slightly smaller similar-appearing focus is present on the contralateral left side arising superiorly from the inferior genu of the cavernous carotid. The intr acranial vessels are normal in appearance with no evidence of major vessel occlusion or stenosis. No aneurysm or vascular malformation is identified. CONCLUSION: 1. 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 2. No acute or suspicious [place] vascular abnormalities. Electronically signed by: Raulito Ojeda MD 09/20/2018 6:40 PM EDT
--- NOTE | 2018-09-20 18:43 | MR ---
EXAM DATE: 09/20/2018 6:33 PM EDT AGE/SEX: 72 years / Female INDICATIONS: Dizziness. CLINICAL DATA: This is the patient's initial encounter. Patient reports that signs and symptoms have been present for 1 day and indicates a pain score of 0/10. MEDICAL/SURGICAL HISTORY: Diabetes mellitus type II. section. COMPARISON: No prior exams available for comparison. TECHNIQUE: 10CC ml Gadavist (gadobutrol) contrast infused MRA (single exam dose) of the extracrania l circulation was performed using a neurovascular coil. Postprocessing was performed, including rota ting sub-volume maximum intensity projections of each carotid artery, rotating full-volume maximum in tensity projections of both carotid arteries, sagittal and coronal sliding thin-slab reformations of each carotid artery, and left oblique sliding thin-slab reformation through the aortic arch to includ e the origin of the arch branch vessels. FINDINGS: Aortic Arch : There is a three-vessel origin of the great vessels from the aorta. No evidence of o stial narrowing. Right Carotid : The common carotid artery is intact. The carotid bulb has a normal configuration wi thout ulceration or narrowing. The internal carotid artery lumen is smooth without stenosis. The ex ternal carotid artery is intact. Left Carotid : The common carotid artery is intact. The carotid bulb has a normal configuration wit hout ulceration or narrowing. The internal carotid artery lumen is smooth without stenosis. The ext ernal carotid artery is intact. 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 The right vertebral is unremarkable. CONCLUSION: 1. 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 Percent stenosis is calculated using the diameter of the stenotic region over the diameter of the nor mal distal internal carotid artery Electronically signed by: Yariel Gifford MD 09/20/2018 6:42 PM EDT
--- NOTE | 2018-09-20 21:13 | MB ---
cc: Angel Luis Rayo MD DATE: 09/20/2018 HISTORY OF PRESENT ILLNESS: A 72-year-old right-handed woman with hypertension, iso-[id number] diabetes, atrial fibrillation, was on Coumadin for a while, but her diet was messing with the Coumadin because she is a vegan, so she does not take it. She also does not take an aspirin a day. She questions whether she has had some thyroid problems in the past or not. She noticed that she woke up yesterday morning and felt like maybe she was leaning over to the right when she was sitting. Her balance was off. She felt like a little confused. REVIEW OF SYSTEMS: She denies any hypercholesterolemia, CABG, stent, renal, hepatic, pulmonary disease, lupus, ulcer, cancer, seizure, prior stroke. SOCIAL HISTORY: Nonsmoker or drinker, lives with her daughter. FAMILY HISTORY: Negative for cancer or stroke. PAST MEDICAL HISTORY: Evidently uses morphine, Xanax, Adderall. History of fibromyalgia. MEDICATIONS AT HOME: 1. Winifrede. 2. Enalapril. 3. Xanax. 4. Estrogen. 5. Morphine. PHYSICAL EXAMINATION: VITAL SIGNS: Afebrile, pulse 51-57, respirations 18, blood pressure 134/59-190/73. NECK: There are no carotid bruits. HEART: Regular rate and rhythm. She has got a 2-3 of systolic ejection murmur. NEUROLOGIC: Pupils are equal. Visual [place] are full. Extraocular movements intact without nystagmus. Face is symmetric with normal sensation. Tongue is midline. There is no drift. Normal strength in upper and lower extremities bilaterally. DTRs trace throughout. Toes downgoing bilaterally. Pinprick seemed to be slightly diminished in the left leg compared to the right, otherwise intact throughout. She is not ataxic on [id number]. Gait steady. Romberg is negative. Speech is fluent. She is not aphasic. LABORATORY DATA: White count 11.5, otherwise CBC was normal. Urine drug screen positive for opiates and benzos. UA essentially normal. Basic metabolic profile. Her CPK was 1200. Her troponin negative. LDL cholesterol was normal. Glucose was 178. BMP was normal. LFTs minimally elevated. Albumin 3.3. TSH low at 0.279. She had a CT scan of the brain, which showed significant right posterior MCA cortically based infarct, Moderate size. Carotid ultrasound negative. Chest x-ray negative. EKG: Sinus rhythm. ASSESSMENT: History of atrial fibrillation, right parietal infarct, likely from atrial fibrillation. We will do an MRI of the brain. If there is no blood in it, we will start her on Eliquis tonight. Also check an MRA of the neck and [place]. An echocardiogram done in 2012 showed normal ejection fraction, mild aortic stenosis. We will recheck an echo here. MD NAKITA Beckford/rodney/marlon , 04:56 PM , 05:04 PM
[2018-09-21] MEDS: Sod Chloride 0.9% Inj 1,000 ML IV.CONT SCH (07:54)
[2018-09-21 09:18] VITALS: RESP 18; O2SAT 95
[2018-09-21] MEDS: Morphine Sulfate 30 MG SR Tablet PO SCH (09:37)
--- NOTE | 2018-09-21 11:59 | P.DS ---
Date of admission: 09/19/18 23:12 Primary care physician: No Primary Care Physician Brief History from admission: 72-year-old female with a history of migraines, CAD, atrial fibrillation not on rate control or anticoagulation, hypothyroidism not on treatment, fibromyalgia, degenerative disc disease on morphine 60 mg extended release twice daily who presents with 1 day history of altered mental status and increased somnolence. Daughter saw the patient this morning after not having seen her for several days and noted that she was somnolent, falling to her right side, slurring speech, and had difficulty swallowing water on the way to the hospital. Patient has regained speech and says that she is felt strange over the past day. Denies any chest pain, shortness of breath. Denies any changes in medications. Daughter notes new prescription for Lortab over the past month. Search of the T4 shows that patient picked up morphine, 180 tablets of Adderall , as well as Xanax on 08/20. Patient does report diffuse pain all over and over the past day. DS: Medications - Discharge Medications Prescriptions: apixaban [Eliquis] 5 mg PO BID #60 tab atorvastatin 20 mg PO HS #90 tab DS: Summary - Time Spent with Patient Total time spent providing and/or coordinating discharge services: - Quality: VTE Deep Vein Thrombosis/Pulmonary Embolism Present on Admission: No Exam Vital signs: Vital Signs 09/20/18 12:00 09/20/18 16:00 09/20/18 20:00 Temperature 97.7 F 97.9 F 98.3 F Pulse Rate 51 L 50 L 61 Respiratory Rate 18 16 17 Blood Pressure 134/59 L 147/83 H 140/65 Pulse Oximetry 95 98 94 L 09/21/18 00:00 09/21/18 04:00 09/21/18 08:00 Temperature 98.6 F 97.8 F 98.0 F Pulse Rate 60 66 60 Respiratory Rate 17 17 18 Blood Pressure 146/67 H 138/90 129/60 Pulse Oximetry 96 96 95 Intake & Output 09/20/18 09/21/18 09/21/18 18:59 06:59 18:59 Intake Total 3120 / 3120 Balance 3120 / 3120 Weight 57.1 kg Intake: IV 1999 NS Inj 1,000 ML @ 125 mls/hr IV 1999 .CONT .Q8H [facility]#:[id number] Oral 1120 / 1120 Other: # Voids 3 4 Date of Last Bowel Movement 09/19/18 09/19/18 09/20/18 Results Procedures completed during hospitalization: None. Labs on day of discharge: Labs from last 24 hours 09/20/18 09/20/18 09/20/18 21:07 17:08 13:12 POC Glucose 103 89 69 Hemoglobin A1c Vitamin B12 09/20/18 09/20/18 09/20/18 12:34 06:53 06:53 POC Glucose 60 L Hemoglobin A1c 6.3 H Vitamin B12 1529 H Preliminary micro results at discharge 09/19/18 21:55 Aerobic Blood Culture - Preliminary Blood - Peripheral No growth in 2 days Anaerobic Blood Culture - Preliminary No growth in 2 days 09/19/18 21:45 Aerobic Blood Culture - Preliminary Blood - Peripheral No growth in 2 days Anaerobic Blood Culture - Preliminary No growth in 2 days - Impressions ITS Impressions Carotid Doppler Study 09/19/18 00:00 CONCLUSION: 1. Right Internal Carotid Artery: Findings indicate <50% stenosis. 2. Left Internal Carotid Artery: Findings indicate <50% stenosis. 3. No flow identified in the left vertebral, similar to prior carotid ultrasound in 2016. Chest X-Ray 09/19/18 21:43 CONCLUSION: Negative examination. Head CT 09/19/18 21:43 CONCLUSION: 1. Decreased attenuation in the right parieto-occipital region most characteristic of subacute or remote infarct. This is a new finding since 2016. 2. Chronic white matter ischemic changes. . 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 The right vertebral is unremarkable. CONCLUSION: 1. 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 Percent stenosis is calculated using the diameter of the stenotic region over the diameter of the normal distal internal carotid artery Head MRI 09/20/18 16:56 CONCLUSION: 1. 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 No recent infarct, mass effect or hemorrhage. Head MRA 09/20/18 16:56 CONCLUSION: 1. 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 2. No acute or suspicious [place] vascular abnormalities. Discharge Plan - Discharge Disposition Patient Disposition: /Home Health Service - Discharge Condition Condition: Good - Discharge Order Discharge Orders: Discharge Order (Routine); Ordered 09/21/18 Ordered By: Miguel Webb - Discharge Details Anticipated Discharge Date: 09/21/18 - Physicians Team Primary Care Provider: Primary Care Bishopi,No Attending Provider: Miguel Webb Other Providers: Paktor,Insurance ; Angel Luis Bobby MD ; Michael Kaiser MD ; Nurse Oncall,Agency
[2018-09-21 13:02] VITALS: BP 146/69; PULSE 55; TEMP 97.6
--- NOTE | 2018-09-21 20:32 | ECHRPT ---
Indication: cva CONCLUSIONS Normal left ventricular size. There is assymetric septal hypertrophy. The left ventricular systolic function is hyperdynamic with an estimated ejection fraction in the ra nge of 65- 70% Severe mitral annular calcification Mild mitral valve stenosis. Pefl-zo-jcpuxykz mitral valve regurgitation. Severe thickening of the aortic valve leaflets. Mild aortic valve stenosis. The estimated pulmonary arterial pressure is 26 mmHg. There is mild tricuspid valve regurgitation. BP: / HR: Rhythm: MEASUREMENTS (Male / Female) Normal Values Technical Quality: 2D ECHO LV Diastolic Diameter PLAX 4.1 cm 4.2 - 5.9 / 3.9 - 5.3 cm LV Systolic Diameter PLAX 2.6 cm IVS Diastolic Thickness 1.6 cm 0.6 - 1.0 / 0.6 - 0.9 cm LVPW Diastolic Thickness 1.2 cm 0.6 - 1.0 / 0.6 - 0.9 cm LV Relative Wall Thickness 0.7 RV Internal Dim ED PLAX 2.4 cm LVOT Diameter 1.6 cm Aortic Root Diameter 2.5 cm LA Systolic Diameter LX 3.7 cm 3.0 - 4.0 / 2.7 - 3.8 cm LV Ejection Fraction MOD 4C 79.2 % LV Ejection Fraction 4C AL 80.4 % M-MODE Aortic Root Diameter MM 3.4 cm LA Systolic Diameter MM 3.9 cm LA Ao Ratio MM 1.1 AV Cusp Separation MM 1.0 cm DOPPLER AV Peak Velocity 284.0 cm/s AV Peak Gradient 32.3 mmHg AV Mean Gradient 15.7 mmHg AV Velocity Time Integral 66.3 cm LVOT Peak Velocity 115.0 cm/s LVOT Peak Gradient 5.3 mmHg LVOT Velocity Time Integral 25.4 cm AV Area Cont Eq vti 0.8 cm AV Area Cont Eq pk 0.8 cm MV Peak Velocity 211.0 cm/s MV Peak Gradient 17.8 mmHg MV Mean Velocity 130.0 cm/s MV Mean Gradient 8.0 mmHg MV Area PHT 2.6 cm Mitral E Point Velocity 169.0 cm/s Mitral A Point Velocity 194.5 cm/s Mitral E to A Ratio 0.9 LV E' Lateral Velocity 6.6 cm/s Mitral E to LV E' Lateral Ratio 25.5 LV E' Septal Velocity 6.0 cm/s Mitral E to LV E' Septal Ratio 28.0 TR Peak Velocity 201.0 cm/s TR Peak Gradient 16.2 mmHg Right Atrial Pressure 10.0 mmHg Pulmonary Artery Systolic Pressu 26.2 mmHg Right Ventricular Systolic Press 26.2 mmHg PV Peak Velocity 118.0 cm/s PV Peak Gradient 5.6 mmHg FINDINGS LEFT VENTRICLE Normal left ventricular size. There is assymetric septal hypertrophy. The left ventricular systolic function is hyperdynamic with an estimated ejection fraction in the ra nge of 65- 70%. RIGHT VENTRICLE Normal right ventricular size and systolic function. LEFT ATRIUM The left atrial size is normal. RIGHT ATRIUM The right atrial size is normal. ATRIAL SEPTUM Normal atrial septal thickness without atrial level shunting by limited color doppler interrogation. AORTA The aortic root and proximal ascending aorta are normal in size on limited imaging. MITRAL VALVE Severe mitral annular calcification. Mild mitral valve stenosis. [id number] mitral valve regurgitation. AORTIC VALVE Severe thickening of the aortic valve leaflets. Mild aortic valve stenosis. TRICUSPID VALVE The estimated pulmonary arterial pressure is 26 mmHg. There is mild tricuspid valve regurgitation. PULMONARY VALVE No pulmonary valve regurgitation or stenosis. VESSELS The inferior vena cava is normal in size. PERICARDIUM No pericardial effusion. Gardenia Porras MD (Electronically Signed) Final Date:21 September 2018 20:31
== END 2018-09-21 18:45 | disposition home health service (06) ==
LOC: NEPE 20:51 → NEDA 23:12 → N06 09-20 00:20
PROVIDERS: ADMIT Hospitalist; ATTEND Hospitalist